=== PATIENT | female | born 1950 | race Caucasian/White ===

== ENCOUNTER → 2017-02-14 | Outpatient (CLI) | payer MEDICARE ==
[~2017-02-14] MED LIST: AUGMENTIN 500-1 EACH PO; CHLORTHALIDONE25 MG PO; COLACE 100MG C100 MG PO; FISH OIL 1,0001 EAC1 PO; HYDROXYZINE HCL10 MG PO; LOVASTATIN40 MG PO; MELOXICAM15 MG PO; NORCO 5-325 TA1 EACH PO; RANITIDINE HCL300 MG PO; SYNTHROID75 MCG PO; VITAMIN D50000 UNIT PO
== END ==
LOC: US 13:24
DX: E04.1 Nontoxic single thyroid nodule (principal)
CPT/HCPCS: 76536

== ENCOUNTER → 2017-02-22 | Day surgery (SDC) | payer MEDICARE, SELFPAY | END | disposition home or self-care (01) | LOC: OR 07:01 | PROVIDERS: Surgery | PROC: 0JBM0ZZ Excision of Left Upper Leg Subcutaneous Tissue and Fascia, Open Approach (ICD-10-PCS; principal; 2017-02-22 08:20) | DX: R22.42 Localized swelling, mass and lump, left lower limb (principal); M19.90 Unspecified osteoarthritis, unspecified site; I10 Essential (primary) hypertension; E78.5 Hyperlipidemia, unspecified; E03.9 Hypothyroidism, unspecified; D86.9 Sarcoidosis, unspecified; E55.9 Vitamin D deficiency, unspecified; Z87.19 Personal history of other diseases of the digestive system; Z88.6 Allergy status to analgesic agent; Z88.2 Allergy status to sulfonamides; Z79.52 Long term (current) use of systemic steroids; Z79.899 Other long term (current) drug therapy; Z86.2 Personal history of diseases of the blood and blood-forming organs and certain disorders involving the immune mechanism; Z90.49 Acquired absence of other specified parts of digestive tract; Z90.710 Acquired absence of both cervix and uterus; Z87.891 Personal history of nicotine dependence | CPT/HCPCS: J0690; J2250; J3010; J7030; J7120 ==

== ENCOUNTER → 2021-09-29 | Outpatient (CLI) | payer MEDICARE, OTHER ==
[~2021-09-29] MED LIST changes: +ACCUPRIL10 MG PO; +DICLOFENAC TOP; +FAMOTIDINE40 MG PO; -HYDROXYZINE HCL10 MG PO; +HYDROXYZINE HCL25 MG PO; +SYNTHROID50 MCG PO; -SYNTHROID75 MCG PO; +TRAMADOL HCL50 MG PO; +TYLENOL 8 HOUR650 MG PO; +VITAMIN B-121000 MCG PO; +VITAMIN C1000 MG PO; +VITAMIN D21250 MCG PO
[2021-09-29 11:31] LABS: HEMOGLOBIN 12.3 gm/dl (12.3-15.3); RED BLOOD COUNT 4.05 M/UL (4.00-5.10)
[2021-09-29 11:47] LABS: BUN/CREATININE RATIO 29 (0-10)
== END ==
LOC: OPSV2 10:13 → EDSTATUS 10:30
PROVIDERS: Orthopaedic Surgery
DX: Z01.818 Encounter for other preprocedural examination (principal)
CPT/HCPCS: 71046; 80048; 85027; 93005

== ENCOUNTER 2021-10-12 09:04 | Day surgery (SDC) | payer MEDICARE, OTHER ==
[~2021-10-12] VITALS: Ht 154.9 cm; Wt 63.0 kg
== END 2021-10-13 14:01 | disposition home or self-care (01) ==
LOC: OR 09:04 → M/S 09:04 → OR 11:15 → M/S 18:30 → OR 10-13 14:01
DX: M19.012 Primary osteoarthritis, left shoulder (principal); I10 Essential (primary) hypertension; E78.5 Hyperlipidemia, unspecified; Z90.49 Acquired absence of other specified parts of digestive tract; Z88.5 Allergy status to narcotic agent; Z88.1 Allergy status to other antibiotic agents; Z20.822 Contact with and (suspected) exposure to COVID-19; E03.9 Hypothyroidism, unspecified; K21.9 Gastro-esophageal reflux disease without esophagitis; Z96.611 Presence of right artificial shoulder joint; N30.10 Interstitial cystitis (chronic) without hematuria
CPT/HCPCS: 73020; 94664; 97161; 97165; 97535; C1713; C1776; J0330; J0690; J1100; J2001; J2250; J2405; J2704; J2795; J3010; J3370; J7120

== ENCOUNTER → 2021-12-30 | Outpatient (CLI) | payer MEDICARE | LOC: MAMO 11-25 13:00 | DX: Z12.31 Encounter for screening mammogram for malignant neoplasm of breast (principal) | CPT/HCPCS: 77063; 77067 ==